=== PATIENT | male | born 1980 | race Caucasian/White ===

== ENCOUNTER 2020-02-25 05:50 | Emergency (ER) | payer MEDICAID ==
[~2020-02-25] VITALS: Ht 157.5 cm; Wt 86.2 kg
[2020-02-25 05:50] VITALS: BP 134/85
--- NOTE | 2020-02-25 05:50 | NUR ---
W/C TO BED 7.
[2020-02-25] MEDS ORDERED: KETOROLAC 30 MG/ML VIAL IVP ONE (06:10)
--- NOTE | 2020-02-25 06:21 | NUR ---
XRAY AT BEDSIDE.
--- NOTE | 2020-02-25 06:25 | NUR ---
39 Y/O MALE PRESENTED TO ED C/O RIGHT KNEE PAIN X 1 DAY. PT STATES HE TWISTED HIS KNEE AT WORK YESTERDAY. OBSERVED SWELLING AROUND PTS RIGHT KNEE. PT STATES TENDER TO TOUCH AND CONSTANT THROBBING , 9/10 PAIN. PT STATES HE TOOK ALEVE FOR THE PAIN YESTERDAY AT 2200 W/ NO RELIEF. PT DENIES N/V/D/F. + PEDAL PULSE. PT DENIES NUMBNESS AND TINGLING IN RLE. PT RESTING IN BED , LOCKED AND IN LOWEST POSITION, HOB ELEVATED, SIDE RAIL X1. PMH: DENIES NKA
[2020-02-25 06:30] LABS: BASOPHILS # (AUTO) 0.2 K/uL (0.00-0.22); BASOPHILS % (AUTO) 1.2 % (0.0-2.0); EOSINOPHILS # (AUTO) 0.2 K/uL (0-0.4); EOSINOPHILS % (AUTO) 1.6 % (0.0-4.0); HEMOGLOBIN 13.8 g/dL (12.0-18.0); LYMPHOCYTES # (AUTO) 2.4 K/uL (2.0-11.5); LYMPHOCYTES % (AUTO) 18.7 % (20.5-51.1); MEAN CORPUSCULAR HEMOGLOBIN 31 pg (27-31); MEAN CORPUSCULAR HGB CONC 34 g/dL (33-37); MEAN CORPUSCULAR VOLUME 92.5 fL (80-94); MONOCYTES # (AUTO) 1.2 K/uL (0.8-1.0); MONOCYTES % (AUTO) 9.5 % (1.7-9.3); NEUTROPHILS # (AUTO) 8.7 K/uL (1.8-7.7); PLATELET COUNT (AUTO) 219 K/uL (140-450); RED BLOOD CELL COUNT(AUTO) 4.43 MIL/uL (4.20-6.10); RED CELL DISTRIBUTION WIDTH 13.9 % (11.6-13.7); WHITE BLOOD COUNT (AUTO) 12.6 K/uL (4.8-10.8)
--- NOTE | 2020-02-25 06:39 | NUR ---
PT SAO2 98% , PT BREATHING EVEN AND UNLABORED. NO OXYGEN NEEDED AT THIS TIME.
[2020-02-25 06:45] LABS: ALBUMIN 3.8 g/dL (3.4-5.0); ANION GAP 12.4 (8-16); CREATININE 0.8 mg/dL (0.6-1.3); POTASSIUM 3.4 mmol/L (3.5-5.1); TOTAL BILIRUBIN 0.6 mg/dL (0.0-1.0)
--- NOTE | 2020-02-25 06:53 | NUR ---
PT TAKEN TO CT VIA [facility]
--- NOTE | 2020-02-25 06:53 | NUR ---
CRITICAL LAB REPORT RECIEVED AND LACTIC ACID 2.1. ERMD MADE AWARE.
--- NOTE | 2020-02-25 07:03 | NUR ---
PT RETURNED FROM CT VIA [facility]
--- NOTE | 2020-02-25 07:06 | NUR ---
REPORT GIVEN TO LEVI PAGE FOR TRANSFER OF CARE.
--- NOTE | 2020-02-25 07:26 | NUR ---
Dr. Zarate is evaluating the patient at bedside.
[2020-02-25] MEDS ORDERED: LIDOCAINE MPF 1% 10 MG/ML VIAL INJ ONE (07:30)
[2020-02-25 07:36] LABS: PROTHROMBIN TIME 10.4 secs (10.8-13.4)
--- NOTE | 2020-02-25 07:40 | NUR ---
NADR, PAIN 6/[address] LARKIN STATES HE WILL PERFORM AN ARTHROCENTESIS TO RELIEVE PAIN/SWELLING
--- NOTE | 2020-02-25 07:43 | NUR ---
PT SIGNED CONSENT FORM FOR PROCEDURE, DR LARKIN TRANSLATED INTO [facility]
--- NOTE | 2020-02-25 07:45 | NUR ---
TIME OUT CALLED BEFORE BEGINNING PROCEDURE WITH DR LARKIN, MYSELF AT BEDSIDE TO ASSIST
[2020-02-25] MEDS ORDERED: MORPHINE SULFATE 4 MG/ML SYR IVP ONE (08:00)
--- NOTE | 2020-02-25 08:22 | NUR ---
MORPHINE IVP ADMINISTERED
--- NOTE | 2020-02-25 08:30 | NUR ---
Applied 16" ortho knee immobilizer and supplied crutches. Patient tolerated immobilizer well, PMSCs assessed and WNL. Crutches were adjusted appropriately for patient and instruction and return demonstration done.
--- NOTE | 2020-02-25 08:49 | NUR ---
NADR, PAIN 12/13
--- NOTE | 2020-02-25 09:42 | NUR ---
PT SLEEPING. LABS PENDING.
[2020-02-25 10:50] VITALS: BP 96/62
--- NOTE | 2020-02-25 11:10 | NUR ---
Patient noted to have existing wounds upon arrival to ER. Wound covered with dressing. Physician informed.
--- NOTE | 2020-02-25 11:12 | NUR ---
Patient discharged with v/s stable. Written and verbal after care instructions given and explained. Patient alert, oriented and verbalized understanding of instructions. Ambulatory with steady gait. All questions addressed prior to discharge. ID band removed. Patient advised to follow up with PMD. Rx of naprosyn, norco given. Patient educated on indication of medication including possible reaction and side effects. Opportunity to ask questions provided and answered.
[2020-02-25 11:26] LABS: GLUCOSE,BODY FLUID 131 mg/dL
[2020-02-25 11:39] LABS: SPECIMENTYPE,BODY FLUID KNEE
[2020-02-25 11:40] LABS: APPEARANCE,SPUN,BODY FLUID HAZY (CLEAR); APPEARANCE,UNSPUN,BODY FLUID BLOODY (CLEAR); COLOR,BODY FLUID RED (LT YELLOW); TOTAL VOLUME,BODY FLUID 35 mL
== END 2020-02-25 11:12 | disposition home or self-care (01) ==
LOC: MED 05:50
DX: M25.461 Effusion, right knee (principal); X50.1XXA Overexertion from prolonged static or awkward postures, initial encounter; Y93.89 Activity, other specified; Y92.89 Other specified places as the place of occurrence of the external cause; Y99.8 Other external cause status
CPT/HCPCS: 20610; 36415; 73562; 73700; 80053; 82945; 83605; 84157; 85025; 85610; 85730; 87040; 87070; 87205; 89051; 93005; 96374; 96375; 99285; J1885; J2001; J2270; Q0092